=== PATIENT | female | born 1995 | race Caucasian/White ===

== ENCOUNTER 2017-03-03 13:23 | Emergency (ER) | payer OTHER ==
[2017-03-03] MEDS ORDERED: NS 1,000 ML IV ONE ×2 (14:02→17:17)
--- NOTE | 2017-03-03 14:10 | EDPHY ---
H & P Time Seen by Provider: 03/03/17 13:50 HPI/ROS: CHIEF COMPLAINT: Vomiting and diarrhea HPI: The patient is a 21-year-old female with no significant past medical history. She reports nausea and multiple episodes of vomiting since last night after dinner. She states she ate food from a food truck and a burrito felt sick afterwards. She denies fever or abdominal pain. She denies blood in emesis or stool. She feels very dehydrated. She also admits to drinking a large amount of champagne and smoking marijuana last night. REVIEW OF SYSTEMS: Aside from elements discussed in the HPI, a comprehensive 10-point review of systems was reviewed and is negative. PMH: History of ankle surgery, otherwise negative. SOCIAL HISTORY: Single. Denies alcohol or drug abuse. PHYSICAL EXAM: General:Patient is alert, in no acute distress. ENT:Eyes are normal to inspection. ENT inspection normal. Neck: Normal inspection. Full range of motion. Respiratory:No respiratory distress. Breath sounds normal bilaterally. Cardiovascular: Regular rate and rhythm. Strong peripheral pulses. Normal cap refill. Abdomen:The abdomen is nontender to palpation. There are no peritoneal signs. There are normal bowel sounds. Back: Normal to inspection. No tenderness to palpation. Skin: Normal color. No rash. Warm and dry. Extremities: Normal appearance. Full range of motion. Neuro: Oriented x3. Normal motor function. Normal sensory function. Smoking Status: Never smoked Constitutional: Initial Vital Signs Temperature (C) 36.9 C 03/03/17 13:25 Heart Rate 91 03/03/17 13:25 Respiratory Rate 18 03/03/17 13:25 Blood Pressure 144/96 H 03/03/17 13:25 O2 Sat (%) 97 03/03/17 13:25 O2 Delivery Mode Room Air Allergies/Adverse Reactions: No Known Allergies Allergy (Unverified 03/03/17 13:32) Home Medications: Medication Instructions Recorded NK [No Known Home Meds] 03/03/17 MDM/Departure - MDM Medications Given: Discontinued Medications Acetaminophen (Tylenol) 650 mg PO EDNOW ONE Stop: 03/03/17 17:25 Last Admin: 03/03/17 17:25 Dose: 650 mg Sodium Chloride (Ns) 1,000 mls @ 0 mls/hr IV ONCE ONE; Wide Open PRN Reason: Protocol Stop: 03/03/17 14:03 Last Admin: 03/03/17 14:09 Dose: 1,000 mls Sodium Chloride (Ns) 1,000 mls @ 0 mls/hr IV ONCE ONE; Wide Open PRN Reason: Protocol Stop: 03/03/17 17:18 Last Admin: 03/03/17 17:23 Dose: 1,000 mls Ondansetron HCl (Zofran) 4 mg IVP EDNOW ONE Stop: 03/03/17 17:18 Last Admin: 03/03/17 17:23 Dose: 4 mg Ondansetron HCl (Zofran Odt 4 Mg Prepack#2) 1 btl TAKEHOME EDNOW ONE Stop: 03/03/17 18:39 Last Admin: 03/03/17 18:51 Dose: 1 btl ED Course/Re-evaluation: This patient was treated with several doses of IV fluids and antiemetics. At 6:40 p.m. was notified by the nurse that the patient feels much better and would like to go home. She is tolerating fluids by mouth without difficulty. Her vital signs remained normal. Given lack of fever abdominal pain, I see no evidence for appendicitis, bowel obstruction, bowel perforation, cholecystitis or sepsis. The patient is not . She does not have an ectopic . I suspect this likely represents either gastroenteritis or potentially mild food poisoning. We discussed strict return precautions. - Depart Disposition: Home, Routine, Self-Care Clinical Impression: Nausea and vomiting Condition: Good Instructions: Acute Nausea and Vomiting (ED) Additional Instructions: Follow-up with your primary doctor within 72 hours. Return to the Emergency Department for worsening pain, fever, severe vomiting, change in character or severity of pain or other worsening of condition. Referrals: ROSA SANDRA [Other] - As per Instructions
[2017-03-03 14:19] LABS: % IMMATURE GRANULYOCYTES 0.3 % (0.0-1.1); ABSOLUTE IMMATURE GRANULOCYTES 0.02 10^3/uL (0.00-0.10); ADD DIFF? NO; ADD MORPH? NO; ADD SCAN? NO; ATYPICAL LYMPHOCYTE FLAG 10 (0-99); FRAGMENT RBC FLAG 0 (0-99); HEMATOCRIT 40.3 % (38.0-47.0); HEMOGLOBIN 13.8 g/dL (12.6-16.3); LEFT SHIFT FLG 0 (0-99); LIPEMIA HEMOLYSIS FLAG 90 (0-99); MEAN CELL HEMOGLOBIN 29.2 pg (27.9-34.1); MEAN CELL HEMOGLOBIN CONCENTR. 34.2 g/dL (32.4-36.7); MEAN CELL VOLUME 85.2 fL (81.5-99.8); MEAN PLATELET VOLUME 11.2 fL (8.7-11.7); PLATELET CLUMPS FLAG 20 (0-99); PLATELET COUNT 196 10^3/uL (150-400); RED BLOOD CELL COUNT 4.73 10^6/uL (4.18-5.33); RED CELL DISTRIBUTION WIDTH 12.3 % (11.5-15.2)
[2017-03-03 14:46] LABS: ANION GAP 11 mEq/L (8-16); CALCIUM 9.9 mg/dL (8.5-10.4); CARBON DIOXIDE 24 mEq/l (22-31); CHLORIDE 105 mEq/L (97-110); CREATININE 0.7 mg/dL (0.6-1.0); GLOMERULAR FILTRATION RATE > 60; GLUCOSE 86 mg/dL (70-100); POTASSIUM 4.3 mEq/L (3.5-5.2); SODIUM 140 mEq/L (134-144)
[2017-03-03] MEDS ORDERED: ONDANSETRON 4 MG/2 ML VIAL IVP ONE (17:17)
[2017-03-03] MEDS ORDERED: ACETAMINOPHEN 325 MG TAB PO ONE (17:24)
[2017-03-03 17:27] VITALS: O2SAT 95
[2017-03-03] MEDS ORDERED: ONDANSETRON 4MG PREPACK#2 BTL TAKEHOME ONE (18:38)
[2017-03-03 18:54] VITALS: BP 109/66; PULSE 81; RESP 16; TEMP 97.7
== END 2017-03-03 18:53 | disposition home or self-care (01) ==
DX: R11.2 Nausea with vomiting, unspecified (principal)
CPT/HCPCS: 96374; J2405